=== PATIENT | male | born 1965 | race Caucasian/White ===

== ENCOUNTER → 2023-03-06 | Outpatient (CLI) | payer OTHER ==
--- NOTE | 2023-03-10 09:03 | CTL ---
EXAMINATION TYPE: CT Low Dose Lung DATE OF EXAM: 03/06/2023 5:32 PM CLINICAL INDICATION:Male, 57 years old with history of Z87.891 PERSONAL HISTORY OF NICOTINE DEPENDENC E; Current every day smoker. 1.5 packs a day x 33 years. , history of tobacco use. COMPARISON: None, baseline study. TECHNIQUE: CT scan of the chest obtained without contrast from approximately the lung apices through the upper abdomen. Axial, coronal and sagittal reformatted images were obtained. Low dose technique w as utilized for nodule screening purposes. CT DLP: 80.7 mGycm, Automated exposure control for dose reduction was used. CT Contrast: IV contrast used: None. Oral contrast used: None. FINDINGS: Lack of intravenous contrast and low dose technique limits the evaluation of the vascular and soft ti ssue structures. LUNGS: No evidence of pulmonary fibrosis. No evidence of focal consolidation, pneumothorax or pleural effusion. Dependent opacities in the lung bases suggest subsegmental atelectasis. There are minima l emphysematous changes suggested bilaterally, upper lobe predominant. Nodules: RUL: None RML: None RLL: None JOANNE: None LLL: None PLEURA: No sizeable pleural effusion or pneumothorax. AIRWAY: Patent and unremarkable. LOWER NECK: No significant findings. MEDIASTINUM: No gross evidence of adenopathy. HEART: Normal heart size. No significant coronary artery calcification.. No appreciable pericardial e ffusion. VASCULATURE: Mild atherosclerotic calcifications of the aorta and branches. Ascending aorta is 3.3 C M, descending is 2.3 CM. Aorta is considered ectatic in its ascending segment. Pulmonary trunk jonathon ures 2.5 CM, normal in size. Vessels otherwise not further assessed without contrast. SOFT TISSUES/LYMPH NODES: Unremarkable soft tissues. No axillary adenopathy. UPPER ABDOMEN: No significant findings. MUSCULOSKELETAL: Mild disc degeneration changes are present throughout the thoracolumbar spine. No a cute findings. IMPRESSION: 1. No clinically significant pulmonary nodules. CT LUNG RAD AND CT CHEST RECOMMENDATION: Lung-Rad 1 Negative: Continue annual screening with LDCT in 12 months. C Modifier (Personal history of lung cancer?): No. S Modifier (Other clinically significant or potentially significant findings?): No. Other significant or potentially significant abnormalities: None. Recommend smoking cessation (if current smoker), or continuation of smoking cessation (if prior smoke r). Annual screening for lung cancer with low-dose computed tomography is recommended in adults ages 55 to 77 years who have a 30 pack-year smoking history and currently smoke or have quit within the pa st 15 years. Screening should be discontinued once a person has not smoked for 15 years or develops a health problem that substantially limits life expectancy or the ability or willingness to have curat marisa lung surgery. Lung rads 2021 [email or web address]
== END | disposition home or self-care (01) ==
LOC: RADCTMAIN 17:13
PROVIDERS: ATTEND Internal Medicine
DX: Z12.2 Encounter for screening for malignant neoplasm of respiratory organs (principal); F17.210 Nicotine dependence, cigarettes, uncomplicated
CPT/HCPCS: 71271